=== PATIENT | male | born 1970 | race African-American/Black ===

== ENCOUNTER 2021-03-10 20:06 | Emergency (ER) | payer BC ==
[~2021-03-10] VITALS: Ht 190.5 cm; Wt 95.3 kg
[2021-03-10] MEDS ORDERED: ZESTRIL10 MG PO (20:20)
[2021-03-10] MEDS ORDERED: HYDROCORT 2.5%-30 GM TOP (21:37)
[2021-03-10] MEDS ORDERED: CEPHALEXIN500 MG PO (21:37)
[2021-03-10] MEDS ORDERED: GRISEOFULVIN U250 MG PO (21:37)
[2021-03-10 22:07] VITALS: BP 147/89
== END 2021-03-10 22:08 | disposition home or self-care (01) ==
LOC: ER 20:06
DX: R21 Rash and other nonspecific skin eruption (principal); I10 Essential (primary) hypertension